=== PATIENT | male | born 1990 | race African-American/Black ===

== ENCOUNTER 2022-04-21 08:53 | Inpatient (IN) ==
[2022-04-21 14:31] VITALS: BMI 27.1
[2022-04-21] MEDS: LR 1,000 ML IV 1,000 ML IV SCH (15:10)
[2022-04-21] MEDS: ZOFRAN INJ 4 MG VIAL IVP PRN (21:14)
[2022-04-21] MEDS: DILAUDID INJ IVP PRN (21:14)
--- NOTE | 2022-04-21 23:40 | DR.H&P ---
H&P History & Physical for Day of: H&P Date: 04/21/22 Chief Complaint Chief Complaint: Abdominal pain Allergies Allergies Allergy/AdvReac Type Severity Reaction Status Date / Time No Known Drug Allergies Allergy Verified 04/21/22 14:25 History of Present Illness History of Present Illness: History of gallstone pancreatitis in the past. Now with abdominal pain and elevated lipase and amylase. CT shows common bile duct at borderline of normal size of [address] shows multiple pseudocysts. Past Surgical History Surgical History: Cholecystectomy Social History Does patient currently use any type of tobacco product: No Have you used tobacco products in the last 12 months: No Type of Tobacco Use: None Alcohol Use: None Drug Use: Marijuana Medications Home Medications: No Known Drug Allergies Allergy (Verified 04/21/22 14:25) CONTINUE taking the following medications [id number] 6,000-19,000-30,000 unit capsule,delayed rel (Creon) 1 cap PO TID 04/21/22 [History] Labs Labs: as above Review of Systems Constitutional: See HPI Eyes: No Symptoms Reported ENT: No Symptoms Reported Respiratory: No Symptoms Reported Cardiovascular: No Symptoms Reported Gastrointestinal: See HPI Genitourinary: No Symptoms Reported Musculoskeletal: No Symptoms Reported Skin: No Symptoms Reported Neurological: No Symptoms Reported Physical Exam Vital Signs: Temperature 97.8 F Pulse Rate [Radial] 52 Respiratory Rate 20 Blood Pressure [Left Arm] 121/70 O2 Sat by Pulse Oximetry 99 Oriented: Normal, Time, Person and Place Eyes: Normal Ear: Normal Nose: Normal Throat: Normal Respiratory: Clear Throughout Cardiovascular: Normal : Normal Auscultation: Bowel Sounds: Normal Palpation: Normal Tenderness: Diffuse Skin: Normal Musculoskeletal: Normal Psychiatric: Normal Mood Description: Calm Affect: Normal Speech Pattern: Clear Assessment/Plan (1) Pancreatitis: Status: Acute Plan: NPO , sequential labs and exams. CT shows common bile duct upper limit of normal and may require MRCP in the future . Review H&P Reviewed: Yes Patient was examined?: Yes
[2022-04-22] MEDS: LR 1,000 ML IV 1,000 ML IV SCH ×3 (03:51→16:35)
[2022-04-22] MEDS: DILAUDID INJ IVP PRN ×3 (04:33→22:10)
[2022-04-22] MEDS: ZOFRAN INJ 4 MG VIAL IVP PRN ×3 (04:33→22:10)
[2022-04-22 06:14] LABS: BASOPHILS % (AUTO) 1.1 % (0.2-1.0); EOSINOPHILS # (AUTO) 0.1 x10^3/uL (0.0-0.2); EOSINOPHILS % (AUTO) 4.3 % (0.9-2.9); HEMATOCRIT 38.1 % (42.0-54.0); LYMPHOCYTES # (AUTO) 1.4 X10^3/uL (1.3-2.9); LYMPHOCYTES % (AUTO) 46.2 % (21.0-51.0); MEAN CORPUSCULAR HEMOGLOBIN 30.5 pg (27.0-34.0); MEAN CORPUSCULAR HGB CONC 34.1 g/dL (33.0-35.0); MEAN CORPUSCULAR VOLUME 89.3 fL (80.0-100.0); MONOCYTES # (AUTO) 0.4 x10^3/uL (0.3-0.8); NEUTROPHILS # (AUTO) 1.1 x10^3/uL (2.2-4.8); NEUTROPHILS % (AUTO) 35.4 % (42.0-75.0); RED BLOOD COUNT 4.27 X10^6/uL (4.7-6.0); RED CELL DISTRIBUTION WIDTH 14.1 % (11.6-16.5)
[2022-04-22 06:40] LABS: ALANINE AMINOTRANSFERASE 225 Units/L (12-78); ALBUMIN 2.9 g/dL (3.4-5.0); ALKALINE PHOSPHATASE 164 Units/L (46-116); AMYLASE 112 Units/L (25-115); ASPARTATE AMINO TRANSFERASE 220 Units/L (15-37); BLOOD UREA NITROGEN 9 mg/dL (7-18); CARBON DIOXIDE 29.5 mmol/L (21-32); CHLORIDE 106 mmol/L (98-107); COR CA(FOR HYPOALB) 8.9 mg/dL (8.5-10.1); CREATININE 0.67 mg/dL (0.70-1.30); LIPASE 846 Units/L (73-393); SODIUM 139 mmol/L (136-145); eGFR NON BLACK RACES > 60 (>60)
--- NOTE | 2022-04-22 17:12 | NOTE.SOAP ---
Soap Note Note for Day of Date of Exam: 04/22/22 Subjective Data Subjective Data: Fells better. Objective Data Temperature: 97.7 F Pulse Rate: 66 Respiratory Rate: 18 Blood Pressure: 117/69 O2 Sat by Pulse Oximetry: 99 Objective Data: Benign abdomen Assessment Assessment: Pancreatitis. Plan Plan: May have clear liquids . Will check labs in AM.
[2022-04-23] MEDS: LR 1,000 ML IV 1,000 ML IV SCH ×3 (02:11→13:38)
[2022-04-23] MEDS: DILAUDID INJ IVP PRN ×3 (03:46→19:43)
[2022-04-23] MEDS: ZOFRAN INJ 4 MG VIAL IVP PRN ×2 (03:46→19:42)
[2022-04-23 05:34] LABS: ALANINE AMINOTRANSFERASE 298 Units/L (12-78); ALBUMIN 2.8 g/dL (3.4-5.0); ALKALINE PHOSPHATASE 225 Units/L (46-116); AMYLASE 103 Units/L (25-115); ASPARTATE AMINO TRANSFERASE 344 Units/L (15-37); BLOOD UREA NITROGEN 8 mg/dL (7-18); CALCIUM 7.4 mg/dL (8.5-10.1); CARBON DIOXIDE 31.9 mmol/L (21-32); CHLORIDE 106 mmol/L (98-107); COR CA(FOR HYPOALB) 8.4 mg/dL (8.5-10.1); CREATININE 0.74 mg/dL (0.70-1.30); LIPASE 744 Units/L (73-393); SODIUM 139 mmol/L (136-145); TOTAL PROTEIN 5.8 g/dL (6.4-8.2); eGFR NON BLACK RACES > 60 (>60)
--- NOTE | 2022-04-23 18:59 | NOTE.SOAP ---
Soap Note Note for Day of Date of Exam: 04/23/22 Subjective Data Subjective Data: Little abdominal pain. Lipase still elevated Objective Data Temperature: 98.2 F Pulse Rate: 70 Respiratory Rate: 18 Blood Pressure: 127/78 O2 Sat by Pulse Oximetry: 99 Objective Data: Benign abdomen. Amylase wnl. Lipase =[id number] Assessment Assessment: Pancreatitis Plan Plan: Continue clear liquid diet. Labs in AM.
[2022-04-23] MEDS ORDERED: BENADRYL CAP/TAB 25 MG PO ONE (20:41)
[2022-04-23] MEDS: BENADRYL CAP/TAB 25 MG PO PRN (20:46)
[2022-04-24] MEDS: LR 1,000 ML IV 1,000 ML IV SCH ×3 (00:50→13:58)
[2022-04-24] MEDS: ZOFRAN INJ 4 MG VIAL IVP PRN (04:16)
[2022-04-24] MEDS: DILAUDID INJ IVP PRN ×3 (04:16→20:25)
[2022-04-24] MEDS: BENADRYL CAP/TAB 25 MG PO PRN ×2 (04:16→11:36)
--- NOTE | 2022-04-24 23:49 | NOTE.SOAP ---
Soap Note Note for Day of Date of Exam: 04/24/22 Subjective Data Subjective Data: Continues to feel better. Objective Data Temperature: 97.4 F Pulse Rate: 64 Respiratory Rate: 18 Blood Pressure: 125/85 O2 Sat by Pulse Oximetry: 100 Objective Data: Benign abdomen.Lipase decreased to 474. Assessment Assessment: Pancreatitis Plan Plan: Continue clear liquid diet. Labs in AM.
[2022-04-25] MEDS: DILAUDID INJ IVP PRN ×3 (02:06→21:23)
[2022-04-25] MEDS: LR 1,000 ML IV 1,000 ML IV SCH ×6 (02:12→17:26)
[2022-04-25] MEDS: BENADRYL CAP/TAB 25 MG PO PRN ×2 (12:29→21:24)
--- NOTE | 2022-04-25 22:50 | NOTE.SOAP ---
Soap Note Note for Day of Date of Exam: 04/25/22 Subjective Data Subjective Data: Patient with pancreatitis . Feeling better . Denies abdominal pain Objective Data Temperature: 98.2 F Pulse Rate: 62 Respiratory Rate: 18 Blood Pressure: 138/85 O2 Sat by Pulse Oximetry: 100 Objective Data: Benign abdomen, [id number] Assessment Assessment: Pancreatitis , probably chronic Plan Plan: Advance to regular diet and if lipase not rising with AM labs will discharge home and plan ERCP as an outpatient
[2022-04-26] MEDS: DILAUDID INJ IVP PRN (04:42)
[2022-04-26] MEDS: BENADRYL CAP/TAB 25 MG PO PRN (04:42)
[2022-04-26 10:01] VITALS: BP 131/81
--- NOTE | 2022-04-26 11:40 | W.DIS.FURT ---
Summary of Discharge Discharge Summary of Date Date of Exam: 04/26/22 Admission Date Date of Admission: 04/21/22 Admission Diagnosis Hospital Course: 31 year old male with a history of pancreatitis in the past presumably caused by gallstones. History of laparoscopic cholecystectomy. Patient known to have multiple pseudocysts of the pancreas. He denies alcohol use. He was seen at the emergency room in [facility] with elevated lipase and amylase consistent with pancreatitis. [place] because of this and because of the finding of a dilated common duct to 1 cm. He was NPO initially and was advanced to a clear liquid diet and subsequently a regular diet with decrease in his lipase to a normal value of 217 . He will be discharged today on Percocet , 5 mg tablets, 1 every 6 hrs PRN pain and will see me in follow up in 1 week. At that time will obtain MRCP. His abdomen is benign. He will continue po Creon. Vital Signs: Vital Signs (72 hours) 04/23/22 18:59 04/24/22 23:48 04/25/22 22:59 Temperature 98.2 F 97.4 F L 98.2 F Pulse Rate 70 64 62 Pulse Rate [Radial] Respiratory Rate 18 18 18 Blood Pressure 127/78 125/85 138/85 Blood Pressure [Left Arm] O2 Sat by Pulse Oximetry 99 100 100 Oxygen Delivery Method 04/23/22 13:37 04/23/22 12:00 04/23/22 16:00 Temperature 98.3 F 98.2 F Pulse Rate Pulse Rate [Radial] 56 L 70 Respiratory Rate 20 18 18 Blood Pressure Blood Pressure [Left Arm] 119/70 127/78 O2 Sat by Pulse Oximetry 100 99 Oxygen Delivery Method Room Air Room Air 04/23/22 14:07 04/23/22 19:43 04/23/22 20:00 Temperature 98.3 F Pulse Rate Pulse Rate [Radial] 65 Respiratory Rate 18 18 18 Blood Pressure Blood Pressure [Left Arm] 132/80 O2 Sat by Pulse Oximetry 100 Oxygen Delivery Method Room Air 04/23/22 19:00 04/23/22 20:13 04/24/22 00:00 Temperature 98.1 F Pulse Rate Pulse Rate [Radial] 66 Respiratory Rate 18 18 Blood Pressure Blood Pressure [Left Arm] 119/78 O2 Sat by Pulse Oximetry 100 Oxygen Delivery Method Room Air Room Air 04/24/22 04:00 04/24/22 04:16 04/24/22 04:46 Temperature 98.1 F Pulse Rate Pulse Rate [Radial] 68 Respiratory Rate 18 20 20 Blood Pressure Blood Pressure [Left Arm] 128/77 O2 Sat by Pulse Oximetry 99 Oxygen Delivery Method Room Air 04/24/22 07:00 04/24/22 08:00 04/24/22 12:14 Temperature 98.2 F Pulse Rate Pulse Rate [Radial] 60 Respiratory Rate 18 19 Blood Pressure Blood Pressure [Left Arm] 110/71 O2 Sat by Pulse Oximetry 99 Oxygen Delivery Method Room Air Room Air 04/24/22 12:00 04/24/22 12:44 04/24/22 16:00 Temperature 98.9 F 97.9 F Pulse Rate Pulse Rate [Radial] 65 64 Respiratory Rate 18 20 18 Blood Pressure Blood Pressure [Left Arm] 118/77 125/85 O2 Sat by Pulse Oximetry 97 100 Oxygen Delivery Method Room Air Room Air 04/24/22 19:00 04/24/22 20:25 04/24/22 20:00 Temperature 97.9 F Pulse Rate Pulse Rate [Radial] 58 L Respiratory Rate 18 18 Blood Pressure Blood Pressure [Left Arm] 120/83 O2 Sat by Pulse Oximetry 100 Oxygen Delivery Method Room Air Room Air 04/25/22 00:00 04/25/22 02:06 04/24/22 20:55 Temperature 98.0 F Pulse Rate Pulse Rate [Radial] 61 Respiratory Rate 18 18 16 Blood Pressure Blood Pressure [Left Arm] 129/75 O2 Sat by Pulse Oximetry 100 Oxygen Delivery Method Room Air 04/25/22 04:00 04/25/22 02:36 04/25/22 07:00 Temperature 97.9 F Pulse Rate Pulse Rate [Radial] 70 Respiratory Rate 18 18 Blood Pressure Blood Pressure [Left Arm] 131/76 O2 Sat by Pulse Oximetry 98 Oxygen Delivery Method Room Air Room Air 04/25/22 08:00 04/25/22 12:00 04/25/22 13:10 Temperature 97.8 F 98.4 F Pulse Rate Pulse Rate [Radial] 62 71 Respiratory Rate 18 20 18 Blood Pressure Blood Pressure [Left Arm] 128/85 131/90 O2 Sat by Pulse Oximetry 99 99 Oxygen Delivery Method Room Air Room Air 04/25/22 13:40 04/25/22 16:00 04/25/22 19:58 Temperature 98.8 F 98.2 F Pulse Rate Pulse Rate [Radial] 64 62 Respiratory Rate 18 18 18 Blood Pressure Blood Pressure [Left Arm] 130/86 138/85 O2 Sat by Pulse Oximetry 100 100 Oxygen Delivery Method Room Air Room Air 04/25/22 21:23 04/25/22 19:00 04/25/22 21:53 Temperature Pulse Rate Pulse Rate [Radial] Respiratory Rate 20 18 Blood Pressure Blood Pressure [Left Arm] O2 Sat by Pulse Oximetry Oxygen Delivery Method Room Air 04/25/22 23:43 04/26/22 04:42 04/26/22 04:00 Temperature 97.8 F 98.1 F Pulse Rate Pulse Rate [Radial] 74 69 Respiratory Rate 18 18 18 Blood Pressure Blood Pressure [Left Arm] 128/83 131/76 O2 Sat by Pulse Oximetry 100 100 Oxygen Delivery Method Room Air Room Air 04/26/22 05:12 04/26/22 07:00 04/26/22 08:00 Temperature 98.1 F Pulse Rate Pulse Rate [Radial] 65 Respiratory Rate 18 20 Blood Pressure Blood Pressure [Left Arm] 131/81 O2 Sat by Pulse Oximetry 99 Oxygen Delivery Method Room Air Room Air Labs: Laboratory Last Values WBC 3.0 X10^3/uL (3.6-10.0) L 04/22/22 05:10 RBC 4.27 X10^6/uL (4.7-6.0) L 04/22/22 05:10 Hgb 13.0 g/dL (13.5-18.0) L 04/22/22 05:10 Hct 38.1 % (42.0-54.0) L 04/22/22 05:10 MCV 89.3 fL (80.0-100.0) 04/22/22 05:10 MCH 30.5 pg (27.0-34.0) 04/22/22 05:10 MCHC 34.1 g/dL (33.0-35.0) 04/22/22 05:10 RDW 14.1 % (11.6-16.5) 04/22/22 05:10 Plt Count 215 X10^3/uL (150.0-450.0) 04/22/22 05:10 MPV 9.0 fL (7.4-11.0) 04/22/22 05:10 Neut % (Auto) 35.4 % (42.0-75.0) L 04/22/22 05:10 Lymph % (Auto) 46.2 % (21.0-51.0) 04/22/22 05:10 Cooper % (Auto) 13.0 % (0.0-13.0) 04/22/22 05:10 Eos % (Auto) 4.3 % (0.9-2.9) H 04/22/22 05:10 Baso % (Auto) 1.1 % (0.2-1.0) H 04/22/22 05:10 Neut # (Auto) 1.1 x10^3/uL (2.2-4.8) L 04/22/22 05:10 Lymph # (Auto) 1.4 X10^3/uL (1.3-2.9) 04/22/22 05:10 Cooper # (Auto) 0.4 x10^3/uL (0.3-0.8) 04/22/22 05:10 Eos # (Auto) 0.1 x10^3/uL (0.0-0.2) 04/22/22 05:10 Baso # (Auto) 0.0 X10^3/uL (0.0-0.1) 04/22/22 05:10 Absolute Nucleated RBC 0.2 /100WBC 04/22/22 05:10 Sodium 139 mmol/L (136-145) 04/23/22 05:05 Corrected Sodium TNP 04/23/22 05:05 Potassium 3.7 mmol/L (3.5-5.1) 04/23/22 05:05 Chloride 106 mmol/L (98-107) 04/23/22 05:05 Carbon Dioxide 31.9 mmol/L (21-32) 04/23/22 05:05 BUN 8 mg/dL (7-18) 04/23/22 05:05 Creatinine 0.74 mg/dL (0.70-1.30) 04/23/22 05:05 Est GFR (MDRD) Af Amer > 60 (>60) 04/23/22 05:05 Est GFR (MDRD) Non-Af > 60 (>60) 04/23/22 05:05 Glucose 87 mg/dL (65-99) 04/23/22 05:05 Calcium 7.4 mg/dL (8.5-10.1) L 04/23/22 05:05 Corrected Calcium 8.4 mg/dL (8.5-10.1) L 04/23/22 05:05 Total Bilirubin 0.80 mg/dL (0.2-1.0) 04/23/22 05:05 AST 344 Units/L (15-37) H 04/23/22 05:05 ALT 298 Units/L (12-78) H 04/23/22 05:05 Alkaline Phosphatase 225 Units/L (46-116) H 04/23/22 05:05 Total Protein 5.8 g/dL (6.4-8.2) L 04/23/22 05:05 Albumin 2.8 g/dL (3.4-5.0) L 04/23/22 05:05 Globulin 3.0 g/dL (2.5-4.5) 04/23/22 05:05 Albumin/Globulin Ratio 0.9 Ratio (1.1-2.1) L 04/23/22 05:05 Amylase 103 Units/L (25-115) 04/23/22 05:05 Lipase 217 Units/L (73-393) 04/26/22 06:13 Reason For Visit: ACUTE PANCREATITIS; R/O BILIARY OBSTRUCTION Discharge Date Discharge Date: 04/26/22 Discharge Diagnosis All Active Problems (Updated 04/21/22 @ 23:59 by Latrell Hollis) Pancreatitis (Acute) Plan of Treatment: Continue with present treatment and follow up plan. Pt is to keep follow up appointment as instructed and take medications as ordered. Discharge Medications Discharge Medications: No Known Drug Allergies Allergy (Verified 04/21/22 14:25) CONTINUE taking the following medications [id number] 6,000-19,000-30,000 unit capsule,delayed rel (Creon) 1 cap PO TID 04/21/22 [History] New Prescriptions oxycodone-acetaminophen 5 mg-325 mg tablet (Percocet) 1 tab PO Q6H PRN Pain #30 tabs 04/26/22 [Rx] Discharge Disposition Assessment: see hospital course above Discharge Plan Discharge Plan Hospital Course: 31 year old male with a history of pancreatitis in the past presumably caused by gallstones. History of laparoscopic cholecystectomy. Patient known to have multiple pseudocysts of the pancreas. He denies alcohol use. He was seen at the emergency room in [facility] with elevated lipase and amylase consistent with pancreatitis. He was transferred to me because of this and because of the finding of a dilated common duct to 1 cm. He was NPO initially and was advanced to a clear liquid diet and subsequently a regular diet with decrease in his lipase to a normal value of 217 . He will be discharged today on Percocet , 5 mg tablets, 1 every 6 hrs PRN pain and will see me in follow up in 1 week. At that time will obtain MRCP. His abdomen is benign. He will continue po Creon. Patient Disposition: 01 HOME, SELF-CARE Condition: Stable Health Concerns: Post Hospitalization: new medications and changes needed to prevent readmission or further decline. Pt educated and given instructions on all concerns. Care Plan Goals: Problem: Pain/Alteration in Comfort Goal: Improve/ Resolve Pain; Achieve Pain Tolerance Instructions: Take pain medications as prescribed. Contact your primary care provider if your pain is unrelieved or worsens. Follow up with primary care provider as directed. Plan of Treatment: Continue with present treatment and follow up plan. Pt is to keep follow up appointment as instructed and take medications as ordered. Assessment: see hospital course above Prescription drug monitoring program results: PDMP reviewed and no concerns identified Prescriptions: New oxycodone-acetaminophen [Percocet] 5-325 mg Tablet 1 tab PO Q6H MDD 4 PRN (Reason: Pain) Qty: 30 0RF Continued Creon 6,000-19,000 -30,000 unit capsule,delayed release(DR/EC) 1 cap PO TID Rx Instructions: TAKE ONE CAPSULE BY MOUTH IN THE MORNING, ONE AT NOON, AND ONE IN THE EVENING. TAKE WITH MEALS. Follow ups/Referrals Follow ups/Referrals: Latrell Hollis [STAFF PHYSICIAN] - 05/05/22 9:30 am ([place] office [address] ) Instructions Instructions: Acute Pancreatitis, [id number], Pancreatitis Eating Plan Stand Alone Forms: Excuse From Work or School
== END 2022-04-26 11:50 | disposition home or self-care (01) | DRG 439 ==
LOC: MED/SURG 13:50
PROVIDERS: ADMIT Surgery; ATTEND Surgery